=== PATIENT | male | born 1960 | race Caucasian/White ===

== ENCOUNTER 2019-07-13 19:34 | Observation (INO) ==
[2019-07-13] MEDS ORDERED: Naloxone 0.4 MG/ML INJ IVP PRN (22:13)
[2019-07-13] MEDS ORDERED: 0.9 % Sodium Chloride 1,000 ML IVC SCH (22:30)
[2019-07-13 22:57] LABS: Estimated Average Glucose 126 mg/dl
[2019-07-14 03:51] LABS: Bilirubin,Urine Negative (Negative); Blood,Urine Negative (Negative); Clarity,Urine Clear (Clear); Color,Urine Yellow (Yellow); Glucose,Urine (UA) Normal (Normal); Ketones,Urine Negative (Negative); Leukocyte Esterase,Urine Negative (Negative); Nitrite,Urine Negative (Negative); Protein,Urine Negative (Neg-Trace); Specific Gravity,Urine 1.012 (1.010-1.025); Urobilinogen,Urine Normal (Normal)
[2019-07-14 04:14] LABS: Basophils % 0.2 %; Eosinophils # 0.1 K/mcL (0.0-0.6); Eosinophils % 0.6 %; Hematocrit 41.2 % (37.5-50.1); Hemoglobin 13.8 g/dL (12.9-16.9); Immature Granulocytes % 0.2 % (0-4); Lymphocytes # 1.5 K/mcL (0.6-4.6); Lymphocytes % 17.2 %; Mean Corpuscular HGB Conc 33.5 g/dL (31.6-35.5); Mean Corpuscular Hemoglobin 30.7 pg (28.0-33.3); Mean Corpuscular Volume 91.6 fL (83.0-100.0); Mean Platelet Volume 9.4 fL (9.4-12.4); Monocytes # 0.9 K/mcL (0.0-1.3); Monocytes % 9.6 %; Neutrophils # 6.4 K/mcL (1.6-8.9); Platelet Count 231 K/mcL (140-400); Red Cell Distribution Width 12.6 % (11.5-14.5); Segmented Neutrophils % 72.2 %; White Blood Count 8.9 K/mcL (4.3-11.1)
[2019-07-14 04:21] LABS: Prothrombin Time 11.3 Seconds (9.4-12.1)
[2019-07-14 04:30] LABS: Alanine Aminotransferase 16 Units/L (7-52); Albumin 3.8 g/dL (3.5-5.7); Albumin/Globulin Ratio 1.4 (1.1-2.2); Alkaline Phosphatase 100 Units/L (34-104); Aspartate Amino Transferase 17 Units/L (13-39); BUN/Creatinine Ratio 16 (6-26); Bilirubin,Total 0.6 mg/dL (0.3-1.0); Blood Urea Nitrogen 17 mg/dL (6-20); Calcium 9.1 mg/dL (8.6-10.3); Carbon Dioxide 28 mEq/L (23-29); Chloride 104 mEq/L (98-107); Chol/HDL Ratio 2.9 (0-4.9); Cholesterol 94 mg/dL (< 200); Globulin 2.8 g/dL (2.4-3.5); Glucose 93 mg/dL (70-105); HDL Cholesterol 32 mg/dL (40-59); LDL Cholesterol,Calculated 46 mg/dL (0-99); Osmolality,Calculated 285 (280-300); Phosphorous 3.9 mg/dL (2.7-4.5); Potassium 3.6 mEq/L (3.5-5.1); Sodium 137 mEq/L (136-145); Total Protein 6.6 g/dL (6.4-8.9); Triglycerides 82 mg/dL (< 150); eGFR For African Americans > 60 (> 60); eGFR For Non-African Americans > 60 (> 60)
[2019-07-14] MEDS: *HR* Heparin 5,000 UNIT/ML VIAL SQ SCH ×3 (05:29→21:03)
[2019-07-14] MEDS: hydroCHLOROthiazide 25 MG TABLET PO SCH (07:30)
[2019-07-14] MEDS: amLODIPine 5 MG TABLET PO SCH (07:30)
[2019-07-14] MEDS: Aspirin Enteric Coated 81 MG Tablet PO SCH (07:33)
[2019-07-14] MEDS ORDERED: *HR* LORazepam 2 MG/ML VIAL IVP PRN (08:22)
[2019-07-14] MEDS: levETIRAcetam 250 MG TABLET PO SCH (17:05)
[2019-07-15] MEDS: *HR* Heparin 5,000 UNIT/ML VIAL SQ SCH (05:41)
[2019-07-15] MEDS: levETIRAcetam 250 MG TABLET PO SCH (05:46)
[2019-07-15] MEDS: Aspirin Enteric Coated 81 MG Tablet PO SCH (08:30)
[2019-07-15] MEDS: hydroCHLOROthiazide 25 MG TABLET PO SCH (08:30)
[2019-07-15] MEDS: amLODIPine 5 MG TABLET PO SCH (08:30)
[2019-07-15 11:13] VITALS: BP 128/70
== END 2019-07-15 15:29 | disposition home or self-care (01) ==
LOC: 3BNU
PROVIDERS: ADMIT Internal Medicine; ATTEND Internal Medicine